=== PATIENT | female | born 1950 | race Caucasian/White ===

== ENCOUNTER → 2020-04-22 | Outpatient (CLI) | payer MEDICARE | END | disposition home or self-care (01) | LOC: OIH 13:02 | PROVIDERS: ATTEND Podiatrist | DX: M19.071 Primary osteoarthritis, right ankle and foot (principal); M19.072 Primary osteoarthritis, left ankle and foot; M20.21 Hallux rigidus, right foot; M20.22 Hallux rigidus, left foot; M25.775 Osteophyte, left foot; M25.774 Osteophyte, right foot; R35.1 Nocturia | CPT/HCPCS: 73630 ==